=== PATIENT | female | born 1960 | race African-American/Black ===

== ENCOUNTER 2023-12-16 22:29 | Emergency (ER) | payer MEDICAID ==
[~2023-12-16] VITALS: Ht 170.2 cm; Wt 85.3 kg
[2023-12-16 22:32] VITALS: BP_SYST 131; PULSE 116; RESP 24; TEMP 98; O2SAT 96
[2023-12-16 23:08] LABS: BASOPHILS # (AUTO) 0.1 K/uL (0.0-0.2); BASOPHILS % (AUTO) 1.6 % (0.0-2.0); EOSINOPHILS # (AUTO) 0.1 K/uL (0.0-0.4); HEMATOCRIT 35.4 % (36-48); LYMPHOCYTES # (AUTO) 2.5 K/uL (1.0-5.5); MEAN CORPUSCULAR HEMOGLOBIN 30 pg (27-31); MEAN CORPUSCULAR HGB CONC 34 % (32-36); MEAN CORPUSCULAR VOLUME 90 fL (79.0-98.0); MONOCYTES # (AUTO) 0.6 K/uL (0.0-1.0); MONOCYTES % (AUTO) 10.1 % (1.7-9.3); NEUTROPHILS # (AUTO) 2.3 K/uL (1.8-7.7); NEUTROPHILS % (AUTO) 42.3 % (40.0-70.0); PLATELET COUNT (AUTO) 292 K/uL (130-430); RED BLOOD CELL COUNT(AUTO) 3.95 MIL/uL (4.2-6.2); RED CELL DISTRIBUTION WIDTH 15.3 % (9.0-15.0); WHITE BLOOD COUNT (AUTO) 5.5 K/uL (4.8-10.8)
[2023-12-16] MEDS: NITROGLYCERIN 1 INCH (GM) OINT. TP ONE (23:44)
[2023-12-16] MEDS: MORPHINE 4 MG INJ. 4 MG/ML VIAL IVP ONE (23:44)
[2023-12-16 23:47] LABS: PROTHROMBIN TIME 10.1 SECS (9.5-12.5)
[2023-12-16 23:52] LABS: ALANINE AMINOTRANSFERASE 15 U/L (12-78); ALBUMIN 3.7 g/dL (3.4-4.8); ANION GAP 14 (5-15); ASPARTATE AMINOTRANSFERASE 18 U/L (10-37); CARBON DIOXIDE 24 mmol/L (23-29); CHLORIDE 105 mmol/L (98-107); CREATININE 1.24 mg/dL (0.55-1.30); GFR AFRICAN AMERICAN 57 mL/min (>90); GLUCOSE 121 mg/dL (74-106); POTASSIUM 3.1 mmol/L (3.5-5.1); SODIUM SERUM 143 mmol/L (136-145); TOTAL BILIRUBIN 0.3 mg/dL (0.0-1.0); TOTAL PROTEIN, SERUM 7.3 g/dL (6.4-8.3); UREA NITROGEN, BLOOD 10 mg/dL (8-21)
[2023-12-16 23:53] LABS: GFR NON AFRICAN-AMERICAN 47 mL/min (>90)
[2023-12-16 23:54] LABS: BILIRUBIN,DIRECT 0.1 mg/dL (0.0-0.3)
[2023-12-17 03:25] VITALS: BP_SYST 140; PULSE 99; RESP 12; TEMP 97.8; O2SAT 96
== END 2023-12-17 03:25 | disposition home or self-care (01) ==
LOC: SED 22:29
DX: R07.89 Other chest pain (principal); I20.89 Other forms of angina pectoris; R00.0 Tachycardia, unspecified; I11.0 Hypertensive heart disease with heart failure; I50.9 Heart failure, unspecified; Z98.61 Coronary angioplasty status
CPT/HCPCS: 99285; 96374; 71045; 80076; 80048; 83880; 85025; 85379; 85610; 85730; 84484; 36415; 93005; J2270